=== PATIENT | male | born 1980 | race African-American/Black ===

== ENCOUNTER 2021-10-09 18:24 | Emergency (ER) | payer OTHER ==
[2021-10-09 18:47] VITALS: BP 135/82; PULSE 88; TEMP 99.3; BMI 33.7
[2021-10-09] MEDS ORDERED: LACTATED RINGERS SOLUTION 1000 ML INFUS.BAG IV ONE (21:26)
[2021-10-09 22:19] LABS: BASO % 0.3 % (0-2.0); EOS % 0.1 % (0-4.5); HEMATOCRIT 46.1 % (35.4-49); HEMOGLOBIN 15.5 GM/dL (11.7-16.9); LYMPH % 9.9 % (8-40); MCHC 33.6 g/dl (32.0-35.9); MEAN CELL VOLUME 86.5 fl (80-96); MEAN PLT VOLUME 7.9 fl (7.5-11.1); MONO % 6.8 % (3.8-10.2); NEUT % 82.9 % (42.8-82.8); PLATELET COUNT 170 10^3/uL (134-434); RBC 5.33 M/mm3 (4.00-5.60); RDW 14.2 % (11.9-15.9); WHITE BLOOD COUNT 15.8 K/mm3 (4.0-10.0)
[2021-10-09 22:23] LABS: INR 1.2 (0.83-1.09); PROTHROMBIN TIME (PATIENT) 13.8 SEC (9.7-13.0)
[2021-10-09 22:25] LABS: ACTIVATED PTT 29.4 SECONDS (25.2-36.5)
[2021-10-09 22:39] LABS: CALCIUM 8.8 mg/dL (8.5-10.1)
[2021-10-09 22:40] LABS: BLOOD UREA NITROGEN 18.4 mg/dL (7-18)
[2021-10-09 22:43] LABS: CREATININE 1.3 mg/dL (0.55-1.3)
[2021-10-09 22:44] LABS: TOT PROT 8.1 g/dl (6.4-8.2)
[2021-10-09 22:45] LABS: BILIRUBIN,TOTAL 0.8 mg/dL (0.2-1)
[2021-10-09] MEDS ORDERED: CEPHALEXIN MONOHYDRATE 500 MG CAPSULE (UD) PO ONE (23:06)
[2021-10-09] MEDS ORDERED: CEPHALEXIN MONOHYDRATE 500 MG CAPSULE (UD) ONE (23:14)
== END 2021-10-09 23:20 | disposition home or self-care (01) ==
LOC: JER 18:24
DX: R21 Rash and other nonspecific skin eruption (principal)
CPT/HCPCS: 0241U-QW; 36415; 71046-TC-FY; 80053; 85025; 85610; 85730; 87040; 93005; 93010; 93970-TC; 99285-25

== ENCOUNTER 2021-10-12 12:57 | Emergency (ER) | payer OTHER ==
[2021-10-12 13:18] VITALS: BP 128/85; PULSE 78; TEMP 98.3; BMI 33.9
== END 2021-10-12 15:09 | disposition home or self-care (01) ==
LOC: JER 12:57
DX: R21 Rash and other nonspecific skin eruption (principal)
CPT/HCPCS: 99282-25